=== PATIENT | female | born 1940 | race African-American/Black ===

== ENCOUNTER 2022-04-04 07:53 | Day surgery (SDC) | payer OTHER ==
[2022-03-28 09:30] VITALS: BMI 22.3
[2022-04-04 09:40] VITALS: RESP 18; TEMP 97.5
[2022-04-04 10:06] VITALS: BP 118/58; PULSE 69
== END 2022-04-04 10:08 | disposition home or self-care (01) ==
LOC: FASU-ENDO 07:53
PROVIDERS: ATTEND Internal Medicine Gastroenterology
PROC: 0DJD8ZZ Inspection of Lower Intestinal Tract, Via Natural or Artificial Opening Endoscopic (ICD-10-PCS; principal; 2022-04-04 09:12)
DX: K56.699 Other intestinal obstruction unspecified as to partial versus complete obstruction (principal); K64.1 Second degree hemorrhoids; K64.8 Other hemorrhoids
CPT/HCPCS: 82962